=== PATIENT | male | born 1955 | race Caucasian/White ===

== ENCOUNTER 2021-03-06 12:10 | Emergency (ER) | payer MEDICAID, OTHER, SELFPAY ==
[~2021-03-06] VITALS: Ht 182.9 cm; Wt 100.0 kg
[2021-03-06 12:14] VITALS: BP 172/102
--- NOTE | 2021-03-06 13:02 | NUR ---
pt presents to ed with c/o covid sx for approx. 1 week. pt states they have been congested an d"feels like they have covid". pt received covid vaccine 1 month ago. pt a&o, resps even and unlabored, royr, tamara.
--- NOTE | 2021-03-06 13:25 | NUR ---
DL Bray at bedside for initial eval.
[2021-03-06 13:40] LABS: BASOPHILS % (AUTO) 1 % (0-1); EOSINOPHILS % (AUTO) 4 % (1-7); LYMPHOCYTES % (AUTO) 25 % (22-44); MEAN CORPUSCULAR HEMOGLOBIN 34.5 pg (27.5-34.5); MEAN CORPUSCULAR HGB CONC 34.9 g/dL (33.2-36.2); MEAN PLATELET VOLUME 8.9 fL (7.4-10.4); MONOCYTES % (AUTO) 8 % (2-9); NEUTROPHILS % (AUTO) 63 % (42-75); PLATELET COUNT 192 x10^3/uL (130-400); RED BLOOD COUNT 4.71 x10^6/uL (4.38-5.82); RED CELL DISTRIBUTION WIDTH 13.6 % (9.4-14.8)
[2021-03-06 13:50] LABS: ALANINE AMINOTRANSFERASE 57 U/L (12-78); ALBUMIN 3.7 g/dL (3.4-5.0); ANION GAP 6 mmol/L (5-15); C-REACTIVE PROTEIN, QUANT 0.11 mg/dL (0.02-0.49); CALCIUM 9.2 mg/dL (8.5-10.1); CHLORIDE 108 mmol/L (98-107); CREATININE 0.59 mg/dL (0.7-1.3)
--- NOTE | 2021-03-06 13:55 | NUR ---
PT decided no longer wanted to wait, ER Charge and notified, AMA paperwork signed
[2021-03-06 14:01] LABS: ALKALINE PHOSPHATASE 131 U/L (45-117); BILIRUBIN,TOTAL 0.9 mg/dL (0.2-1.0); TOTAL PROTEIN 7.5 g/dL (6.4-8.2)
== END 2021-03-06 14:08 | disposition left against medical advice (07) ==
LOC: ED 12:57
DX: R05 Cough (principal); Z20.822 Contact with and (suspected) exposure to COVID-19; R06.02 Shortness of breath; R07.89 Other chest pain; R94.31 Abnormal electrocardiogram [ECG] [EKG]
CPT/HCPCS: 36415; 80053; 82728; 83605; 83615; 85025; 86140; 87040; 93005; 99284; U0003; U0005